=== PATIENT | male | born 1955 | race Caucasian/White ===

== ENCOUNTER 2024-08-09 18:56 | Emergency (ER) | payer MEDICARE, BC ==
[2024-08-09] MEDS ORDERED: Lidocaine 2% 20 ML MDV INJECT ONE (18:57)
[2024-08-09] MEDS ORDERED: Triamcinolone Acetonide 40 MG/ML 1 ML SDV ONE (19:30)
== END 2024-08-09 19:50 | disposition home or self-care (01) ==
LOC: FB.ED 18:56
DX: M70.61 Trochanteric bursitis, right hip (principal)
CPT/HCPCS: 96372; 99283; J2003; J3301

== ENCOUNTER 2024-12-13 20:24 | Inpatient (IN) | payer MEDICARE, BC ==
[2024-12-13] MEDS ORDERED: Naloxone 0.4 MG/ML SDV IVPUSH PRN ×2 (21:11→22:56)
[2024-12-13] MEDS: Ondansetron 4 MG/2 ML SDV IVPUSH ONE (21:20)
[2024-12-13 21:22] LABS: BASOPHILS ABSOLUTE AUTO 0.0 x10-3/uL (0.0-0.3); BASOPHILS PERCENT AUTO 0.3 % (0.3-3.8); EOSINOPHILS ABSOLUTE AUTO 0.0 x10-3/uL (0.0-0.6); EOSINOPHILS PERCENT AUTO 0.7 % (0.1-6.8); LYMPHOCYTES ABSOLUTE AUTO 1.0 x10-3/uL (0.5-4.5); LYMPHOCYTES PERCENT AUTO 13.3 % (15.8-45.3); MEAN PLATELET VOLUME 8.6 fL (6.7-11.0); MONOCYTES ABSOLUTE AUTO 0.7 x10-3/uL (0.0-1.2); MONOCYTES PERCENT AUTO 9.4 % (5.5-15.2); NEUTROPHILS ABSOLUTE AUTO 5.6 x10-3/uL (1.7-6.9); NEUTROPHILS PERCENT AUTO 76.3 % (40.3-71.8); PLATELET COUNT,PLT 248 x10(3)uL (117-477); RED BLOOD CELL COUNT 5.00 x10(6)uL (3.90-5.90); RED CELL DISTRIBUTION WIDTH 13.9 % (12.4-15.0); WHITE BLOOD CELL COUNT,WBC 7.4 x10-3/uL (3.2-10.1)
[2024-12-13] MEDS: HYDROmorphone 2 MG/ML SDV IVPUSH STA ×2 (21:24→23:02)
[2024-12-13] MEDS: Ketorolac 30 MG/ML SDV IVPUSH ONE (21:25)
[2024-12-13 21:27] LABS: BLOOD UREA NITROGEN,BUN 15 mg/dL (7-18); CARBON DIOXIDE,CO2 30 mmol/L (21-32); CHLORIDE,CL 100 mmol/L (100-110); CREATININE 0.9 mg/dL (0.70-1.30); ESTIMATED GFR 93 mL/min (>60); GLUCOSE RANDOM 104 mg/dL (80-116); POTASSIUM,K 3.9 mmol/L (3.5-5.3); SODIUM,NA 138 mmol/L (135-145)
[2024-12-13 21:32] LABS: A/G RATIO 1.1; ALANINE AMINOTRANSFERASE,ALT 26 U/L (12-36); ASPARTATE AMNIOTRANSFERASE,AST 24 IU/L (5-25); BILIRUBIN TOTAL 1.4 mg/dL (0.1-1.3); PROTEIN TOTAL,TP 7.0 g/dL (6.0-8.0)
[2024-12-13 21:38] LABS: LACTIC ACID 0.8 mmol/L (0.4-2.0)
[2024-12-13] MEDS: Iopamidol 755 Mg/ML 100 ML Bottle IV SCH (21:47)
[2024-12-13] MEDS: Ciprofloxacin in D5W 400 MG in Premix Bag 1 BAG IV SCH (22:43)
[2024-12-13] MEDS ORDERED: Ondansetron 4 MG/2 ML SDV IV PRN (22:48)
[2024-12-13] MEDS ORDERED: Sennosides/Docusate Sodium 50-8.6 MG Tab PO PRN (22:48)
[2024-12-13 23:18] LABS: GLUCOSE,URINE NORMAL (NORMAL); OCCULT BLOOD,URINE NEGATIVE (NEGATIVE)
[2024-12-13 23:19] LABS: APPEARANCE,URINE SLIGHTLY CLOUDY (CLEAR)
[2024-12-13] MEDS: metroNIDAZOLE/Normal Saline 500 MG in Premix Bag 1 BAG IV SCH (23:58)
[2024-12-14] MEDS: Sodium Chloride 0.9% 10 ML Syringe FLUSH PRN (01:24)
[2024-12-14] MEDS: Acetaminophen/oxyCODONE 325-5 MG Tab PO PRN ×2 (01:31→11:59)
[2024-12-14] MEDS: HYDROmorphone 2 MG/ML SDV IVPUSH PRN (06:07)
[2024-12-14 06:43] LABS: BASOPHILS ABSOLUTE AUTO 0.1 x10-3/uL (0.0-0.3); BASOPHILS PERCENT AUTO 1.1 % (0.3-3.8); EOSINOPHILS ABSOLUTE AUTO 0.1 x10-3/uL (0.0-0.6); EOSINOPHILS PERCENT AUTO 0.9 % (0.1-6.8); LYMPHOCYTES ABSOLUTE AUTO 1.3 x10-3/uL (0.5-4.5); LYMPHOCYTES PERCENT AUTO 19.2 % (15.8-45.3); MEAN PLATELET VOLUME 8.4 fL (6.7-11.0); MONOCYTES ABSOLUTE AUTO 0.7 x10-3/uL (0.0-1.2); MONOCYTES PERCENT AUTO 11.3 % (5.5-15.2); NEUTROPHILS ABSOLUTE AUTO 4.4 x10-3/uL (1.7-6.9); NEUTROPHILS PERCENT AUTO 67.5 % (40.3-71.8); PLATELET COUNT,PLT 242 x10(3)uL (117-477); RED BLOOD CELL COUNT 4.57 x10(6)uL (3.90-5.90); RED CELL DISTRIBUTION WIDTH 13.7 % (12.4-15.0); WHITE BLOOD CELL COUNT,WBC 6.6 x10-3/uL (3.2-10.1)
[2024-12-14 07:00] LABS: A/G RATIO 1.0; ALANINE AMINOTRANSFERASE,ALT 22 U/L (12-36); ASPARTATE AMNIOTRANSFERASE,AST 22 IU/L (5-25); BILIRUBIN TOTAL 1.0 mg/dL (0.1-1.3); BLOOD UREA NITROGEN,BUN 18 mg/dL (7-18); CARBON DIOXIDE,CO2 32 mmol/L (21-32); CHLORIDE,CL 103 mmol/L (100-110); CREATININE 1.0 mg/dL (0.70-1.30); EST CRCL DRUG DOSING (CG) 73.00 mL/min; ESTIMATED GFR 82 mL/min (>60); GLUCOSE RANDOM 105 mg/dL (80-116); POTASSIUM,K 4.1 mmol/L (3.5-5.3); PROTEIN TOTAL,TP 6.1 g/dL (6.0-8.0); SODIUM,NA 139 mmol/L (135-145)
[2024-12-14] MEDS ORDERED: metroNIDAZOLE/Normal Saline 500 MG in Premix Bag 1 BAG IV SCH (09:00)
[2024-12-14 14:17] VITALS: BP 122/75; PULSE 77
== END 2024-12-14 15:26 | disposition home or self-care (01) | DRG 392 ==
LOC: FB.ED 20:24 → FB.MS 22:48
PROVIDERS: ADMIT Emergency Medicine; ATTEND Family Medicine
DX: K57.92 Diverticulitis of intestine, part unspecified, without perforation or abscess without bleeding (principal); R53.1 Weakness; R63.4 Abnormal weight loss; Z90.49 Acquired absence of other specified parts of digestive tract; Z98.890 Other specified postprocedural states; Z68.29 Body mass index [BMI] 29.0-29.9, adult
CPT/HCPCS: 36415; 74177; 80053; 81003; 83605; 83690; 85025; 94150; 96361; 96374; 96375; 99235; 99283; 99285-25; A9270-GY; J0744; J1171; J1650; J1836; J1885; J2405; J7030; Q9967